=== PATIENT | male | born 1990 | race Two or more races ===

== ENCOUNTER 2017-12-20 15:02 | Emergency (ER) | payer OTHER ==
--- NOTE | 2017-12-20 15:17 | CPEKG ---
Heart Rate: 70 RR Interval: 857 P-R Interval: 148 QRSD Interval: 100 QT Interval: 376 QTC Interval: 406 P [place]: 69 QRS [place]: -54 T Wave [place]: 70 EKG Severity - ABNORMAL ECG - EKG Impression: SINUS RHYTHM EKG Impression: LAD, CONSIDER LEFT ANTERIOR FASCICULAR BLOCK Electronically Signed By: Angelica Hairston 20-Dec-2017 23:08:30
[2017-12-20] MEDS ORDERED: IBUPROFEN 600 MG TAB PO ONE (15:21)
--- NOTE | 2017-12-20 15:25 | EDPHY ---
H & P Smoking Status: Never smoked Time Seen by Provider: 12/20/17 15:10 HPI/ROS: CHIEF COMPLAINT: Chest pain HISTORY OF PRESENT ILLNESS: 27-year-old male presents to the emergency department by private vehicle complaining of left anterior chest pain that is been constant for a week and half. The patient denies any known trauma or injury. He thinks that he was just sitting at his desk when he initially felt that and felt a little bit lightheaded. No history of syncopal episodes. He denies feeling short of breath. Denies pleuritic chest pain. He states that when he exercises he does not feel the pain but rather when he is at rest he feels the pain more so. Denies radiation of pain. Denies neck pain or arm pain. He denies nausea or vomiting or feeling sweaty. He admits to smoking marijuana, however he denies any other substance abuse. No pertinent family medical history of early heart disease. The patient has been under lot of stress lately with a recent move. REVIEW OF SYSTEMS: Constitutional: No fever, no chills. Eyes: No double or blurry vision. ENT: No sore throat. Respiratory: No cough, no shortness of breath. Cardiac: Chest pain as above Gastrointestinal: No abdominal pain, vomiting or diarrhea. Genitourinary: No dysuria. Musculoskeletal: No neck or back pain. Skin: No rashes. Neurological: No headache. (Amberly Pinto) Past Medical/Surgical History: Jaw surgery (Maggie Pintoa M) Social History: Single (Millie,Amberly Ajay) Physical Exam: General Appearance: Alert, no distress. 138/69, 97% on room air. Eyes: Pupils equal and round. Extraocular motions are all intact. ENT: Mouth: Mucous membranes moist. Respiratory: No wheezing, rhonchi, or rales, lungs are clear to auscultation. The patient points to the left lateral anterior aspect of the chest just lateral to the sternum as the source of pain. No palpable crepitus. Unable to reproduce pain with palpation to the anterior aspect of his chest. Cardiovascular: Regular rate and rhythm. Gastrointestinal: Abdomen is soft and nontender, no masses, no rebound or guarding, bowel sounds normal. Neurological: Alert and oriented x 3, cranial nerves II through XII grossly intact Skin: Warm and dry, no rashes. Musculoskeletal: Nontender to palpate along the cervical, thoracic or lumbar spine. Neck is supple. Extremities: Full range of motion and no peripheral edema. No calf tenderness bilaterally. Psychiatric: Patient is oriented X 3, there is no agitation. (Amberly Pinto) Constitutional: Initial Vital Signs Temperature (C) 36.6 C 12/20/17 15:04 Heart Rate 70 12/20/17 15:04 Respiratory Rate 17 12/20/17 15:04 Blood Pressure 138/69 H 12/20/17 15:04 O2 Sat (%) 97 12/20/17 15:04 O2 Delivery Mode Room Air Allergies/Adverse Reactions: No Known Allergies Allergy (Unverified 12/20/17 15:03) Home Medications: Medication Instructions Recorded NK [No Known Home Meds] 12/20/17 Medical Decision Making ED Course/Re-evaluation: 27-year-old male presents to the emergency department with chest pain. The case was discussed with Dr. Angelica Hairston, secondary supervising physician, who did not directly evaluate the patient but agrees with treatment plan. Laboratory studies are pending. The patient was given 600 mg of ibuprofen p.o. 4:20 p.m.: The patient is feeling much better. His pain had completely resolved. He feels comfortable being discharged home. Chest x-rays unremarkable. (Amberly Pinto) I have evaluated and participated in the management of this patient. My co- signature indicates that I have reviewed this chart and that I agree with the findings and the plan of care as documented. I did interview and examine this patient. My personal history and physical findings include: Generally healthy 27-year-old male with 1 week of mid substernal chest pressure/discomfort. He is not identified anything that makes it better or worse. It does not worsen with exercise. It does not change with eating. He has not recently been ill. No trauma. Pain is not pleuritic and he does not feel short of breath. He has no family history of early coronary artery disease and no personal risk factors. On exam he is awake and alert. Heart has regular rate and rhythm without murmur, rub, or gallop. Lungs are clear to auscultation. Abdomen is soft and nontender. Extremities are without caught calf tenderness or edema. EKG does not show any ischemic changes. Sinus rhythm with a rate of 70. I reviewed his chest x-ray--no pneumothorax and no acute pulmonary disease. I have also reviewed his labs. Sodium is slightly high, all else within normal limits including troponin. HEART score is zero.Low risk. I agree with evaluation, treatment, and disposition. (Angelica Hairston) Differential Diagnosis: Chest pain including but not limited to myocardial ischemia, pulmonary embolus, chest wall pain, pleural inflammation and pulmonary infectious causes. (Amberly Pinto) - Data Points Laboratory Results: Laboratory Results 12/20/17 15:15 12/20/17 15:15 Medications Given: Discontinued Medications Ibuprofen (Motrin) 600 mg PO EDNOW ONE Stop: 12/20/17 15:22 Last Admin: 12/20/17 15:24 Dose: 600 mg Departure - Departure Disposition: Home, Routine, Self-Care Clinical Impression: Chest pain Condition: Good Instructions: Chest Pain (ED) Additional Instructions: Ibuprofen 600 mg every 8 hr as needed for pain. Activity as tolerated. Return to the emergency department if he developed recurring chest pain especially with activity or if you feel worse in any way. Referrals: JM QUESADA [Primary Care Provider] - As per Instructions Neena Mota MD [Medical Doctor] - 2-3 days, call for appt. ([employer] on- call)
[2017-12-20 15:42] LABS: PLATELET COUNT 238 10^3/uL (150-400)
[2017-12-20 16:25] VITALS: BP 101/78
== END 2017-12-20 16:23 | disposition home or self-care (01) ==
DX: R07.9 Chest pain, unspecified (principal)